=== PATIENT | female | born 1995 | race Hispanic/Latino ===

== ENCOUNTER 2017-07-11 16:28 | Emergency (ER) | payer BC, OTHER ==
[2017-07-11] MEDS ORDERED: Metoclopramide HCl 10 MG/2 ML VIAL ONE (22:08)
[2017-07-11] MEDS ORDERED: Ketorolac Tromethamine 30 MG/ML VIAL ONE (22:08)
[2017-07-11] MEDS ORDERED: diphenhydrAMINE 50 MG/ML VIAL ONE (22:08)
== END 2017-07-11 23:31 | disposition home or self-care (01) ==
LOC: ERS 16:28
DX: G43.909 Migraine, unspecified, not intractable, without status migrainosus (principal); R21 Rash and other nonspecific skin eruption
CPT/HCPCS: 96365; 96375; J1200; J1885; J2765

== ENCOUNTER 2018-04-07 10:43 | Emergency (ER) | payer BC, OTHER ==
[2018-04-07] MEDS ORDERED: ISOVUE-370 76%-LOCM 1 ML ONE (10:59)
[2018-04-07 11:55] LABS: Bilirubin Negative (Negative); Blood, Urine Negative (Negative); Clarity CLEAR (Clear); Glucose, Urine (Dipstick) Negative (Negative); Leukocyte Negative (Negative); Nitrite Negative (Negative); Protein, Urine (Dipstick) Negative (Neg-Trace); Specific Gravity, Urine 1.028 (1.002-1.036); Urobilinogen 0.2 mg/dL (0.2-1.0)
--- NOTE | 2018-04-07 12:20 | CT ---
CT PELVIS WITH IV CONTRAST: Date: 04/07/18 PROVIDED CLINICAL HISTORY: Pelvic pain, status post six days ago. FINDINGS: No comparisons. The uterus appears enlarged. There is a somewhat hypodense appearance to the uterine myometrium. Ther e is a heterogeneous appearance to the contents of the endometrial canal, including multiple small fo ci of gas. Hyperdense material is present in the region of the lower uterine segment. There is no evidence for an intraperitoneal fluid collection or free intraperitoneal fluid. There is no evidence for free intraperitoneal air involving the visualized portions of the pelvis. Stranding c hanges and gas density seen within the anterior abdominal wall are compatible with postoperative martinez ge. The osseous structures demonstrate no concerning lytic or blastic lesions. Tubal ligation clips are s een associated with the left adnexa. IMPRESSION: Appearance of the uterus as described above. Changes may reflect the patient's recent history of Caes arean section. Hyperdense material within the uterine endometrial canal may reflect blood products. E nhancing material cannot be excluded, which could also reflect retained products of conception. Foci of gas are also noted and correlation with concerns for endometritis is recommended. POS: [facility]
== END 2018-04-07 13:19 | disposition home or self-care (01) ==
LOC: ERS 10:43
DX: O90.89 Other complications of the puerperium, not elsewhere classified (principal); G89.18 Other acute postprocedural pain; F53.0 Postpartum depression; Z79.891 Long term (current) use of opiate analgesic; Z79.899 Other long term (current) drug therapy
CPT/HCPCS: 72193; 81003

== ENCOUNTER 2019-06-15 13:33 | Emergency (ER) | payer OTHER, SELFPAY ==
[2019-06-15] MEDS ORDERED: Acetaminophen 500 MG TAB ONE (14:12)
[2019-06-15 14:36] LABS: Bilirubin Negative (Negative); Blood, Urine Trace (Negative); Clarity Clear (Clear); Glucose, Urine (Dipstick) Normal (Negative); Leukocyte Negative Leu/uL (Negative); Nitrite Negative (Negative); Protein, Urine (Dipstick) 100 mg/dL (Neg-Trace); Urobilinogen 12 mg/dL (Less than 2); WBC/HPF 0-3 HPF (0-3)
[2019-06-15 14:37] LABS: Bacteria/HPF 1+ HPF (None Seen)
--- NOTE | 2019-06-15 14:45 | CT ---
CT Brain WO Con HISTORY: Headache COMPARISON: 03/14/2015 FINDINGS: The right-sided ventriculostomy shunt tubing is again seen with distal tip overlying the pe riventricular white matter just superior to the left of the third ventricle. This is unchanged in position. The ventricular system remains decompressed and unchanged. No evidence of acute infarct, hemorrhage, midline shift or abnormal extra-axial fluid collections is noted. The bony calvarium is intact. There is mucosal disease in the paranasal sinuses. IMPRESSION: No CT evidence of acute intracranial process.
[2019-06-15 15:00] LABS: #Lymphocytes 2.5 thou/uL (1.20-3.40); #Monocytes 0.6 thou/uL (0.11-0.59); #Neutrophils 5.1 thou/uL (1.40-6.50); %Eosinophils 0.2 % (0.0-10.0); %Lymphocytes 30.7 % (21.0-51.0); %Monocytes 7.5 % (0.0-10.0); %Neutrophils 61.7 % (42.0-75.0); Hemoglobin 12.4 g/dL (12.0-16.0); Mean Corpuscular HGB CONC 32.9 g/dL (32.0-36.0); Mean Corpuscular Hemoglobin 28.7 pg (27.0-31.0); Mean Corpuscular Volume 87.3 fL (78.0-98.0); Mean Platelet Volume 7.7 fL (7.4-10.4); Platelet Count 238 thou/uL (130-400); RBC Distribution Width 11.8 % (11.5-14.5); Red Blood Cell (RBC) Count 4.31 mill/uL (4.20-5.40); White Blood Cell (WBC) Count 8.2 thou/uL (4.8-10.8)
--- NOTE | 2019-06-15 15:00 | RAD ---
SHUNTOGRAM: HISTORY: Headache. COMPARISON: 06/18/2013 FINDINGS: AP and lateral views of the skull and AP views of the neck, chest and abdomen were obtained. The right sided ventriculoperitoneal shunt catheter is again noted. The superior tip is unchanged in position, to the left of midline. There is discontinuity of the [employer]OCK[employer] SCIENTIST shunt tubing in the right lower neck for a distance of 16 mm. The tu tyson then traverses from the right side of the chest with the inferior tip overlying the medial aspec t of the left upper quadrant. POS: [facility]
[2019-06-15 15:17] LABS: ALT (SGPT) 20 U/L (8-55); AST (SGOT) 16 U/L (5-34); Albumin 3.7 g/dL (3.5-5.0); Alkaline Phosphatase 64 U/L (40-110); Anion Gap 15 mmol/L (10-20); BUN (Urea Nitrogen) 8 mg/dL (7.0-18.7); Bilirubin, Total 0.4 mg/dL (0.2-1.2); Calc. Creatinine Clearance 0 mL/min (70-130); Carbon Dioxide 27 mmol/L (22-29); Chloride 103 mmol/L (98-107); Estimated GFR-MDRD Greater than 90; Globulin 3.9 g/dL (2.4-3.5); Glucose 94 mg/dL (70-105); Potassium 3.8 mmol/L (3.5-5.1); Protein, Total 7.6 g/dL (6.0-8.3); Sodium 141 mmol/L (136-145)
[2019-06-15 15:48] LABS: BHCG - Serum Negative (NEGATIVE); Pregs Control Background? CLEAR/WHITE (CLR/WHITE); Pregs Control Bar Appear? YES (CONTROL BAR)
== END 2019-06-15 15:31 | disposition home or self-care (01) ==
LOC: ERS 13:33
DX: B34.9 Viral infection, unspecified (principal); H66.93 Otitis media, unspecified, bilateral; F32.9 Major depressive disorder, single episode, unspecified
CPT/HCPCS: 36415; 70450; 75809; 80053; 81003; 81015; 84703; 85025; 87804

== ENCOUNTER 2020-02-24 10:37 | Emergency (ER) | payer BC, OTHER ==
[2020-02-24 16:42] LABS: SARS-CoV-2 MS2 Positive; SARS-CoV-2 N Gene Negative; SARS-CoV-2 S Gene Negative; SARS-CoV-2 by NAA Not Detected (NotDetected); SARS-CoV-2 orf1ab Negative
== END 2020-02-24 10:59 | disposition home or self-care (01) ==
LOC: ERS 10:37
DX: J02.9 Acute pharyngitis, unspecified (principal); Z20.828 Contact with and (suspected) exposure to other viral communicable diseases; F17.210 Nicotine dependence, cigarettes, uncomplicated
CPT/HCPCS: 87635; 99283; U0003

== ENCOUNTER 2020-03-19 07:57 | Emergency (ER) | payer BC | END 2020-03-19 08:17 | disposition home or self-care (01) | LOC: ERS 07:57 | DX: K04.7 Periapical abscess without sinus (principal); R22.0 Localized swelling, mass and lump, head; F32.9 Major depressive disorder, single episode, unspecified; F17.210 Nicotine dependence, cigarettes, uncomplicated | CPT/HCPCS: 99283 ==

== ENCOUNTER 2020-05-13 20:01 | Emergency (ER) | payer BC ==
[2020-05-14 00:11] LABS: #Eosinphils 0.1 thou/uL (0.0-0.7); #Lymphocytes 4.1 thou/uL (1.20-3.40); #Monocytes 0.6 thou/uL (0.11-0.59); #Neutrophils 4.5 thou/uL (1.40-6.50); %Basophils 0.5 % (0.0-1.0); %Lymphocytes 44.1 % (21.0-51.0); %Monocytes 6.4 % (0.0-10.0); Hemoglobin 13.3 g/dL (12.0-16.0); Mean Corpuscular HGB CONC 32.5 g/dL (32.0-36.0); Mean Corpuscular Volume 89.3 fL (78.0-98.0); Mean Platelet Volume 7.9 fL (7.4-10.4); Platelet Count 280 thou/uL (130-400); White Blood Cell (WBC) Count 9.3 thou/uL (4.8-10.8)
[2020-05-14 00:19] LABS: BHCG - Serum Negative (NEGATIVE); Pregs Control Background? CLEAR/WHITE (CLR/WHITE); Pregs Control Bar Appear? YES (CONTROL BAR)
[2020-05-14 00:27] LABS: Bilirubin Negative (Negative); Blood, Urine Negative (Negative); Clarity Clear (Clear); Glucose, Urine (Dipstick) Normal (Negative); Ketone, Urine Negative (Negative); Leukocyte Negative Leu/uL (Negative); Nitrite Negative (Negative); Protein, Urine (Dipstick) Negative (Neg-Trace); Specific Gravity, Urine 1.021 (1.002-1.036); Urobilinogen Normal mg/dL (Less than 2)
[2020-05-14 00:28] LABS: ALT (SGPT) 18 U/L (8-55); AST (SGOT) 13 U/L (5-34); Alkaline Phosphatase 67 U/L (40-110); Anion Gap 13 mmol/L (10-20); BUN (Urea Nitrogen) 12 mg/dL (7.0-18.7); Bilirubin, Total 0.2 mg/dL (0.2-1.2); Calc. Creatinine Clearance 0 mL/min (70-130); Calcium 9.2 mg/dL (7.8-10.44); Carbon Dioxide 25 mmol/L (22-29); Chloride 106 mmol/L (98-107); Globulin 3.3 g/dL (2.4-3.5); Glucose 83 mg/dL (70-105); Protein, Total 7.3 g/dL (6.0-8.3); Sodium 140 mmol/L (136-145)
[2020-05-14] MEDS ORDERED: Metoclopramide HCl 10 MG/2 ML VIAL ONE (00:53)
[2020-05-14] MEDS ORDERED: Ketorolac Tromethamine 30 MG/ML VIAL ONE (00:53)
[2020-05-14] MEDS ORDERED: Metoclopramide 10 MG/10 ML UDCUP ONE (00:53)
[2020-05-14] MEDS ORDERED: diphenhydrAMINE 50 MG/ML VIAL ONE (00:53)
--- NOTE | 2020-05-14 07:44 | CT ---
PRELIMINARY REPORT/[facility]/EMERGENCY AFTER HOURS PROCEDURE EXAM: CT Head Without Intravenous Contrast. CLINICAL HISTORY: PT PRESENTS TO ED WITH MAIN COMPLAINT OF MIGRAINE GRADE HEADACHES TECHNIQUE: Axial computed tomography images of the head/brain without intravenous contrast. COMPARISON: None provided. FINDINGS: BRAIN: No acute intraparenchymal hemorrhage. No mass lesion. No CT evidence for acute territorial infarct. N o midline shift or extra-axial collection. Right frontal approach ventriculostomy catheter is present. VENTRICLES: No hydrocephalus. ORBITS: The orbits are unremarkable. SINUSES AND MASTOIDS: The paranasal sinuses and mastoid air cells are clear. SOFT TISSUES: No significant facial or scalp soft tissue swelling evident. No radiopaque foreign body is seen. BONES: No acute skull fracture. IMPRESSION: No acute intracranial abnormality. ELECTRONICALLY SIGNED BY: Drake Quintero DO May 14, 2020 12:17:55 AM MANA[facility] [employer] This report is intended for review by the ordering physician only, in accordance of law. If you recei ve this report in error, please call [facility] at [phone]. FINAL REPORT Final report by Dr. [facility] after-hours study CT BRAIN NONCONTRAST: DATE: 05/14/2020 12:09 AM HISTORY: 25-year-old female with headache COMPARISON: 06/15/2019 and 10/14/2016 FINDINGS: Agree with preliminary report by [facility]. IMPRESSION: 1) TAX AGENT shunt catheter. 2) No signs of obstructive hydrocephalus, and no acute intracranial findings. 3) No interval change. Transcribed Date/Time: 05/14/2020 8:18 AM
--- NOTE | 2020-05-14 08:52 | RAD ---
SHUNTOGRAM TOTAL OF 6 IMAGES: INDICATION: Headache. Assess ventriculoperitoneal shunt catheter. COMPARISON: 06/15/2019. FINDINGS: AP and lateral views of the skull show [employer]ER shunt catheter entering the right frontal region, the tip o verlying the midline. Catheter traverses the right scalp and neck. There is disruption of the catheter in the lower neck which was noted on the prior study with distrac tion of the catheter fragments at this location, unchanged from 06/15/2019. Catheter overlying the chest and upper abdomen appear intact and unchanged. The visualized lung santiago and bowel gas pattern appear unremarkable. IMPRESSION: Disruption of the catheter in the lower right neck, unchanged from the exam of 06/15/2019. POS: [facility]
== END 2020-05-14 02:06 | disposition home or self-care (01) ==
LOC: ERS 20:01
DX: R51.9 Headache, unspecified (principal); T85.09XA Other mechanical complication of ventricular intracranial (communicating) shunt, initial encounter; R42 Dizziness and giddiness; R10.817 Generalized abdominal tenderness; R10.9 Unspecified abdominal pain; Z87.891 Personal history of nicotine dependence
CPT/HCPCS: 36415; 70450; 75809; 80053; 81003; 84703; 85025; 96365; 96375; J1200; J1885; J2765

== ENCOUNTER 2021-01-07 19:39 | Emergency (ER) | payer BC ==
[2021-01-07 20:16] LABS: #Eosinphils 0.1 thou/uL (0.0-0.7); #Lymphocytes 3.3 thou/uL (1.20-3.40); #Monocytes 0.6 thou/uL (0.11-0.59); #Neutrophils 4.8 thou/uL (1.40-6.50); %Basophils 0.1 % (0.0-1.0); %Eosinophils 1.1 % (0.0-10.0); %Lymphocytes 37.8 % (21.0-51.0); %Monocytes 6.2 % (0.0-10.0); %Neutrophils 54.8 % (42.0-75.0); Hemoglobin 12.8 g/dL (12.0-16.0); Mean Corpuscular HGB CONC 32.8 g/dL (32.0-36.0); Mean Corpuscular Hemoglobin 29.8 pg (27.0-31.0); Mean Corpuscular Volume 90.6 fL (78.0-98.0); Mean Platelet Volume 7.8 fL (7.4-10.4); Platelet Count 274 thou/uL (130-400); RBC Distribution Width 12.9 % (11.5-14.5); Red Blood Cell (RBC) Count 4.31 mill/uL (4.20-5.40); White Blood Cell (WBC) Count 8.8 thou/uL (4.8-10.8)
[2021-01-07] MEDS ORDERED: Acetaminophen 500 MG TAB ONE (20:21)
[2021-01-07] MEDS ORDERED: diphenhydrAMINE 50 MG/ML VIAL ONE (20:21)
[2021-01-07] MEDS ORDERED: Metoclopramide 10 MG/10 ML UDCUP ONE (20:21)
[2021-01-07] MEDS ORDERED: Metoclopramide HCl 10 MG/2 ML VIAL ONE (20:22)
[2021-01-07 20:32] LABS: BHCG - Serum Negative (NEGATIVE); Pregs Control Background? CLEAR/WHITE (CLR/WHITE); Pregs Control Bar Appear? YES (CONTROL BAR)
[2021-01-07 20:35] LABS: ALT (SGPT) 16 U/L (8-55); AST (SGOT) 16 U/L (5-34); Alkaline Phosphatase 70 U/L (40-110); Anion Gap 9 mmol/L (10-20); BUN (Urea Nitrogen) 12 mg/dL (7.0-18.7); Bilirubin, Total 0.2 mg/dL (0.2-1.2); Calc. Creatinine Clearance 0 mL/min (70-130); Carbon Dioxide 25 mmol/L (22-29); Chloride 108 mmol/L (98-107); Globulin 3.2 g/dL (2.4-3.5); Glucose 88 mg/dL (70-105); Potassium 3.8 mmol/L (3.5-5.1); Protein, Total 7.2 g/dL (6.0-8.3); Sodium 138 mmol/L (136-145)
[2021-01-07] MEDS ORDERED: Ketorolac Tromethamine 30 MG/ML VIAL ONE (20:49)
== END 2021-01-07 21:38 | disposition home or self-care (01) ==
LOC: ERS 19:39
DX: R51.9 Headache, unspecified (principal); Z87.891 Personal history of nicotine dependence
CPT/HCPCS: 36415; 70450; 75809; 80053; 84703; 85025; 96365; 96375; J1200; J1885; J2765

== ENCOUNTER 2021-04-18 07:44 | Emergency (ER) | payer SELFPAY | END 2021-04-18 12:43 | disposition home or self-care (01) | LOC: ERS 07:44 | DX: T85.09XA Other mechanical complication of ventricular intracranial (communicating) shunt, initial encounter (principal); R51.9 Headache, unspecified; Z87.891 Personal history of nicotine dependence | CPT/HCPCS: 70450; 75809 ==

== ENCOUNTER 2021-06-22 20:43 | Emergency (ER) | payer SELFPAY ==
[2021-06-22] MEDS ORDERED: Acetaminophen 500 MG TAB ONE (21:40)
[2021-06-23 13:49] LABS: SARS-CoV-2 PCR by NAA DETECTED (NotDetected)
== END 2021-06-22 22:41 | disposition home or self-care (01) ==
LOC: ERS 20:43
DX: U07.1 COVID-19 (principal)
CPT/HCPCS: 99284; U0003; U0005

== ENCOUNTER 2022-11-21 09:25 | Emergency (ER) | payer SELFPAY ==
[~2022-11-21 09:25] MED LIST: Iopamidol-370 76% 500 ML MDV (1 ML CHARGE) ONE
[2022-11-21 10:14] LABS: #Eosinphils 0.2 thou/uL (0.0-0.7); #Monocytes 0.4 thou/uL (0.11-0.59); #Neutrophils 5.1 thou/uL (1.40-6.50); %Basophils 0.4 % (0.0-1.0); %Eosinophils 1.9 % (0.0-10.0); %Lymphocytes 30.4 % (21.0-51.0); %Monocytes 4.6 % (0.0-10.0); %Neutrophils 62.6 % (42.0-75.0); Hemoglobin 12.4 g/dL (12.0-16.0); Mean Corpuscular HGB CONC 32.2 g/dL (32.0-36.0); Mean Corpuscular Hemoglobin 28.6 pg (27.0-31.0); Mean Corpuscular Volume 88.9 fl (78.0-98.0); Mean Platelet Volume 10.2 fL (7.4-10.4); Platelet Count 245 10x3/uL (130-400); RBC Distribution Width 13.2 % (11.5-14.5); Red Blood Cell (RBC) Count 4.33 mill/uL (4.20-5.40); White Blood Cell (WBC) Count 8.1 10x3/uL (4.8-10.8)
[2022-11-21 10:44] LABS: Pregnancy Test - Urine (BHCG) Negative (Negative); Pregu Control Background? CLEAR/WHITE (CLR/WHITE); Pregu Control Bar Appear? YES (CONTROL BAR); Specific Gravity 1.024 (1.002-1.036)
[2022-11-21 10:47] LABS: ALT (SGPT) 24 U/L (8-55); AST (SGOT) 19 U/L (5-34); Albumin 3.9 g/dL (3.5-5.0); Alkaline Phosphatase 64 U/L (40-110); Anion Gap 7 mmol/L (10-20); BUN (Urea Nitrogen) 11 mg/dL (7.0-18.7); Bilirubin, Total 0.3 mg/dL (0.2-1.2); Calc. Creatinine Clearance 0 mL/min (70-130); Carbon Dioxide 24 mmol/L (22-29); Chloride 110 mmol/L (98-107); Estimated GFR 122; Globulin 2.7 g/dL (2.4-3.5); Glucose 83 mg/dL (70-105); Potassium 4.1 mmol/L (3.5-5.1); Protein, Total 6.6 g/dL (6.0-8.3); Sodium 137 mmol/L (136-145)
[2022-11-21] MEDS ORDERED: Benzonatate 100 MG CAP ONE (12:31)
[2022-11-21] MEDS ORDERED: Prochlorperazine 10 MG/2 ML VIAL ONE (12:31)
[2022-11-21] MEDS ORDERED: Ketorolac Tromethamine 30 MG/ML VIAL ONE (12:31)
[2022-11-21] MEDS ORDERED: Albuterol 200 PUFF (6.7GM INHALER) INH SCH (12:45)
== END 2022-11-21 13:15 | disposition home or self-care (01) ==
LOC: ERS 09:25
DX: J18.9 Pneumonia, unspecified organism (principal)
CPT/HCPCS: 36415; 70450; 71275; 75809; 80053; 81025; 84484; 85025; 85379; 93005; 94760; 96374; 96375; J0780; J1885; J7611; Q9967

== ENCOUNTER 2023-05-27 20:47 | Emergency (ER) | payer SELFPAY ==
[2023-05-27] MEDS ORDERED: Ibuprofen 800 MG TAB ONE (21:11)
[2023-05-27] MEDS ORDERED: Boostrix 0.5 ML (Tdap) VIAL (>/=7 yrs of age) ONE (21:12)
== END 2023-05-27 21:50 | disposition home or self-care (01) ==
LOC: ERS 20:47
DX: S61.442A Puncture wound with foreign body of left hand, initial encounter (principal); Z23 Encounter for immunization; W22.8XXA Striking against or struck by other objects, initial encounter
CPT/HCPCS: 90471; 90715